=== PATIENT | female | born 1995 | race Two or more races ===

== ENCOUNTER → 2023-08-19 | Outpatient (CLI) | payer MEDICAID ==
[2023-08-19 11:07] LABS: Basophils # (auto) 0 10 ^3/uL (0-0.2); Basophils % (auto) 0.4 % (0.0-2.0); Eosinophils # (auto) 0 10 ^3/uL (0-0.8); Eosinophils % (auto) 0.3 % (0.0-7.0); Hematocrit 34.8 % (36.0-46.0); Lymphocytes # (auto) 1.9 10 ^3/uL (0.4-5.4); Lymphocytes % (auto) 21.8 % (10.0-50.0); Mean Corpuscular Hemoglobin 32.7 pg (28.0-32.0); Mean Corpuscular Hgb Conc. 34.5 g/dL (32.0-36.0); Monocytes # (auto) 0.4 10 ^3/uL (0-1.3); Monocytes % (auto) 4.8 % (0.0-12.0); Neutrophils # (auto) 6.3 10 ^3/uL (1.6-8.6); Neutrophils % (auto) 72.7 % (37.0-80.0); Nucleated Red Blood Cells % 0.1 %; Red Blood Cells 3.66 10^6/uL (4.0-5.20); Red Cell Distribution Width 13.6 % (11.8-14.3); White Blood Cell 8.6 10^3/uL (4.4-10.8)
[2023-08-19 11:48] LABS: Amphetamine Screen, Urine Neg (NEGATIVE)
[2023-08-19 11:50] LABS: Barbiturate Scree,Urine Neg (NEGATIVE); Benzodiazephine Screen, Urine Neg (NEGATIVE); Cocaine Screen, Urine Neg (NEGATIVE); Opiate Scree,Urine Neg (NEGATIVE)
[2023-08-19 11:51] LABS: Cannabinoid Screen, Urine Neg (NEGATIVE); Phencyclidine Screen, Urine Neg (NEGATIVE)
[2023-08-19 11:54] LABS: Thyroid Stimulating Hormone 3.11 uIU/mL (0.55-4.78)
[2023-08-19 11:55] LABS: Alanine Aminotransferase 14 U/L (7-40); Albumin 4.3 g/dL (3.2-4.8); Alkaline Phosphatase 40 U/L (46-116); Anion Gap 6 (5-15); Aspartate Aminotransferase 13 U/L (13-40); BUN/Creatinine Ratio 14.3 (10.0-20.0); Blood Urea Nitrogen 8 mg/dL (9-23); Calcium 9.3 mg/dL (8.5-10.1); Carbon Dioxide 23 mmol/L (20-30); Chloride 108 mmol/L (98-107); Cholesterol 228 mg/dL (< 200); Glucose 80 mg/dL (74-106); LDL Cholesterol 141 mg/dL (< 100); Potassium 3.6 mmol/L (3.5-5.1); Sodium 137 mmol/L (136-145); Triglycerides 132 mg/dL (< 150)
[2023-08-19 11:56] LABS: Bilirubin, Total 0.5 mg/dL (0.2-1.0); HDL Cholesterol 72 mg/dL (40-59); Total Protein 6.7 g/dL (5.7-8.2)
[2023-08-19 12:02] LABS: Beta HCG, Quantitative 20180.7 mIU/mL (1.5-4.2)
[2023-08-20 08:06] LABS: RPR Non Reactive (Non Reactive)
[2023-08-20 23:07] LABS: Chlamydia Trachomatis, NAA Negative (Negative); Neisseria gonorrhoeae, NAA Negative (Negative)
[2023-08-21 02:06] LABS: Varicella Zoster IgG Antibody 623 index (Immune >165)
[2023-08-21 11:07] LABS: QuantiFERON-TB Gold Plus Negative (Negative)
== END | disposition home or self-care (01) ==
LOC: LAB 10:39
PROVIDERS: ATTEND Obstetrics & Gynecology
DX: Z34.00 Encounter for supervision of normal first pregnancy, unspecified trimester (principal); Z31.430 Encounter of female for testing for genetic disease carrier status for procreative management; Z36.0 Encounter for antenatal screening for chromosomal anomalies; N39.0 Urinary tract infection, site not specified; Z3A.00 Weeks of gestation of pregnancy not specified
CPT/HCPCS: 36415; 80053; 80061; 80307; 83036; 84439; 84443; 84702; 85025; 86592; 86703; 86762; 86787; 86850; 86900; 86901; 87086; 87088; 87186; 87340; 87902

== ENCOUNTER → 2023-08-27 | Outpatient (CLI) | payer MEDICAID | END | disposition home or self-care (01) | LOC: LAB 12:25 | PROVIDERS: ATTEND Obstetrics & Gynecology | DX: Z34.80 Encounter for supervision of other normal pregnancy, unspecified trimester (principal); Z3A.00 Weeks of gestation of pregnancy not specified | CPT/HCPCS: 86703 ==

== ENCOUNTER → 2023-09-22 | Outpatient (CLI) | payer MEDICAID ==
[2023-09-22 10:48] LABS: Albumin 4.2 g/dL (3.2-4.8); Alkaline Phosphatase 51 U/L (46-116); Anion Gap 5 (5-15); Aspartate Aminotransferase 13 U/L (13-40); BUN/Creatinine Ratio 10.5 (10.0-20.0); Basophils # (auto) 0 10 ^3/uL (0-0.2); Basophils % (auto) 0.2 % (0.0-2.0); Blood Urea Nitrogen 6 mg/dL (9-23); Calcium 9.1 mg/dL (8.7-10.4); Carbon Dioxide 26 mmol/L (20-30); Chloride 106 mmol/L (98-107); Eosinophils # (auto) 0 10 ^3/uL (0-0.8); Eosinophils % (auto) 0.2 % (0.0-7.0); Glucose 84 mg/dL (74-106); Hematocrit 33.4 % (36.0-46.0); Hemoglobin 11.4 g/dL (12.2-16.2); Lymphocytes # (auto) 1.6 10 ^3/uL (0.4-5.4); Lymphocytes % (auto) 18.9 % (10.0-50.0); Mean Corpuscular Hemoglobin 31.8 pg (28.0-32.0); Mean Corpuscular Hgb Conc. 34.2 g/dL (32.0-36.0); Monocytes # (auto) 0.5 10 ^3/uL (0-1.3); Monocytes % (auto) 5.6 % (0.0-12.0); Neutrophils # (auto) 6.3 10 ^3/uL (1.6-8.6); Neutrophils % (auto) 75.1 % (37.0-80.0); Red Blood Cells 3.59 10^6/uL (4.0-5.20); Sodium 137 mmol/L (136-145); White Blood Cell 8.4 10^3/uL (4.4-10.8)
[2023-09-22 10:49] LABS: Alanine Aminotransferase < 9 U/L (7-40); Bilirubin, Total 0.5 mg/dL (0.2-1.0); Total Protein 6.5 g/dL (5.7-8.2)
[2023-09-23 12:47] LABS: RPR Non Reactive (Non Reactive)
[2023-09-23 13:07] LABS: Chlamydia Trachomatis, NAA Negative (Negative); Neisseria gonorrhoeae, NAA Negative (Negative)
== END | disposition home or self-care (01) ==
LOC: LAB 10:13
PROVIDERS: ATTEND Obstetrics & Gynecology
DX: Z34.00 Encounter for supervision of normal first pregnancy, unspecified trimester (principal)
CPT/HCPCS: 36415; 80053; 82951; 83036; 85025; 86592; 86850; 86900; 86901

== ENCOUNTER 2024-01-02 14:03 | Observation (INO) | payer MEDICAID ==
[~2024-01-02] VITALS: Ht 162.6 cm; Wt 74.8 kg
--- NOTE | 2024-01-02 14:49 | DVH ---
BIOPHYSICAL PROFILE HISTORY: post dates TECHNIQUE: Multiple transabdominal real-time grayscale sonographic images through the gravid uterus of the fetus with duplex Doppler color flow and M-mode spectral analysis FINDINGS: BIOPHYSICAL PROFILE: breathing score: 2 movement score: 2 tone score: 2 Quantitative TROY score: 2 (TROY: 16.4 Cm.) Total score: 8/8 Single live fetus in cephalic presentation. heart rate 131 beats per minute. Right lateral placenta without previa or abruption IMPRESSION: 1. Biophysical profile score: 8/8 HS:Y
--- NOTE | 2024-01-03 10:04 | DVHDS2 ---
Obstetrics Discharge Summary Obstetrics Discharge Summary Date of Admission: Jan 02, 2024 Date of Discharge: Jan 02, 2024 Reason For Admission: Observational/Evaluation ( Status) Procedures: NST, Ultrasound Discharge Diagnosis: Others (Post dates reassuring heart tones BPP/TROY) Discharge Information: Activity (Unrestricted), Diet (Routine), Medications (None), Instructions (Kick count precautions SROM precautions), Discarge date ANDREW PARTIDA DO Jan 03, 2024 10:04
== END 2024-01-02 15:34 | disposition home or self-care (01) ==
LOC: LDRP 14:03
PROVIDERS: ADMIT Obstetrics & Gynecology; ATTEND Obstetrics & Gynecology
DX: O48.0 Post-term pregnancy (principal); Z3A.40 40 weeks gestation of pregnancy; Z79.899 Other long term (current) drug therapy
CPT/HCPCS: 59025; 76818; 81002; 94760; G0378

== ENCOUNTER 2024-01-04 19:32 | Observation (INO) | payer MEDICAID ==
--- NOTE | 2024-01-04 20:30 | DVH ---
BIOPHYSICAL PROFILE HISTORY: NST/ BPP for Post Dates TECHNIQUE: Multiple transabdominal real-time grayscale sonographic images through the gravid uterus of the fetus with duplex Doppler color flow and M-mode spectral analysis FINDINGS: BIOPHYSICAL PROFILE: breathing score: 2 movement score: 2 tone score: 2 Quantitative TROY score: 2 (TROY: 14.6 Cm.) Total score: 8/8 Single live fetus in cephalic presentation. heart rate 142 beats per minute. Anterior placenta without previa or abruption IMPRESSION: 1. Biophysical profile score: 8/8 HS:Y
[2024-01-04] MEDS ORDERED: PREN-96 PO (21:05)
--- NOTE | 2024-01-05 05:25 | DVHDS2 ---
Obstetrics Discharge Summary Obstetrics Discharge Summary Date of Admission: Jan 04, 2024 Date of Discharge: Jan 04, 2024 Reason For Admission: Observational/Evaluation Procedures: None, NST, Ultrasound Discharge Diagnosis: Others (Patient postop day 2 for evaluation status reassuring maternal status reassuring) Discharge Information: Activity (Unrestricted), Diet (Routine), Medications (None), Instructions (Kick counts labor precautions SROM precautions), Discharge to, Discarge date (January 04, 2024) ANDREW PARTIDA DO Jan 05, 2024 05:25
== END 2024-01-04 21:12 | disposition home or self-care (01) ==
LOC: LDRP 19:32
PROVIDERS: ADMIT Obstetrics & Gynecology; ATTEND Obstetrics & Gynecology
DX: O48.0 Post-term pregnancy (principal); Z3A.40 40 weeks gestation of pregnancy; Z79.899 Other long term (current) drug therapy
CPT/HCPCS: 59025; 76818; 81002; 94760; G0378

== ENCOUNTER 2024-01-05 07:20 | Inpatient (IN) | payer MEDICAID ==
[~2024-01-05] VITALS: Ht 162.6 cm; Wt 74.8 kg
[~2024-01-05 07:20] MED LIST: PREN-96 PO
[2024-01-05] MEDS ORDERED: BUTORPHANOL TARTRATE 2 MG/1 ML VIAL IV PRN ×2 (07:30)
[2024-01-05] MEDS ORDERED: LIDOCAINE 2%HCL (LOCAL ANESTH.) INJ 20ML MDV IJ PRN (07:30)
--- NOTE | 2024-01-05 08:00 | DVHHP2 ---
OB CC & HPI Date Date of Admission: Jan 05, 2024 Patient Identification: : 1 Para: 0 EDC: Dec 31, 2023 EGA: 40.5wks Chief Complaints: Reason for admission: induction of labor Indication for induction: post dates History of Present Complaints 28yo IUP@40.5wks presents for scheduled IOL postdates. Denies UCs/LOF/VB/DEVI/vision changes/RUQ pain. Endorses +FM, +BH. PNC: Routine PNC at [facility] OB with Dr. Frances, adequate visits, PNC uncomplicated. GTT wnl, dating based on LMP c/w 19wk sono, GBS negative. Past Medical History Cardiac: No pertinent Hx Pulmonary: No pertinent Hx Central Nervous System: No pertinent Hx GI: No pertinent Hx Hemotology/Oncology: No pertinent Hx Hepatobiliary: No pertinent Hx Psychiatric: No pertinent Hx Musculoskeletal: No pertinent Hx Rheumotologic: No pertinent Hx Infectious Disease: No peritnent Hx ENT: No pertinent Hx Renal/: No pertinent Hx Endocrine: No pertinent Hx Dermatology: No pertinent Hx Past Surgical History: No pertinent Hx OB History OB History Care: Good Care Ultrasounds: Normal mid trimester US Obstetrical Complications: None Medical Complications: None Allergies: Coded Allergies: NO KNOWN ALLERGIES (Unverified , 01/02/24) Home Meds Reported Medications Vit W/ Ferrous Fumara ( One Daily) Daily Tab, 1 TAB PO DAILY, #30 TAB 11 Refills 01/04/24 Current Medications Current Medications Medications (Trade) Dose Ordered Sig/Natali Route PRN Reason Start Time Stop Time Status Last Admin Lactated Ringer's 1,000 ml @ 125 mls/hr Q8H IV 01/05/24 07:30 UNV Witch Radha (Tucks) 1 pad PRN PRN TOP PERINEAL AREA DISCOMFORT 01/05/24 07:30 UNV Sodium Lauryl Sulfate (Phisoderm) 240 ml PRN PRN TOP PERINEAL AREA DISCOMFORT 01/05/24 07:30 UNV Benzocaine (Dermoplast) 1 applic PRN PRN TOP PERINEAL AREA DISCOMFORT 01/05/24 07:30 UNV Butorphanol Tartrate (Stadol Injection) 1 mg Q4HPRN PRN IV MODERATE PAIN (4-6 PAIN SCALE) 01/05/24 07:30 UNV Butorphanol Tartrate (Stadol Injection) 2 mg Q4HPRN PRN IV SEVERE PAIN (7-10 PAIN SCALE) 01/05/24 07:30 UNV Misoprostol (Cytotec) 50 mcg Q4HPRN PRN PO CERVICAL RIPENING 01/05/24 07:30 UNV Lidocaine HCl (Xylocaine) 20 ml ONCE PRN IJ PERINEAL AREA DISCOMFORT 01/05/24 07:30 UNV Family & Social History Family/Social History Past Family/Social History: denies Blood Type: A+ Rubella: immune RPR/VDRL: Negative GBS Status: Negative HBsAG: Negative Review of Systems Constitutional: No symptom reported Ears, Nose, & Throat: No symptom reported Eyes: No symptom reported Pulmonary/Respiratory: No symptom reported Cardiovascular: No symptom reported Gastrointestinal: No symptom reported Genitourinary: No symptom reported Musculoskeletal: No symptom reported Skin: No symptom reported Psychiatric: No symptom reported Endocrine: No symptom reported Hemotologic/Lymphatic: No symptom reported OB Admission Exam Physical Exam Vitals: VSS, see chart HEENT: TMs Normal, Fontanelles Normal, Nasal Mucosa Normal, Eyes non-injected, Oropharynx Normal, PERRLA, Moist Membranes, EOMI Heart: Rhythm Normal Lungs: Clear Abdomen: Gravid Extremities: Normal Reflexes: Normal Pelvic Exam: O: VSS EFW in office last week: 7 lbs 2 oz, vertex Nuchal Cord x1 noted on sono SVE - 02/28/3, vertex, intact See lab results Membranes: Intact Heart Rate: 130's Accelerations: Accelerations Present Decelerations: No Decelerations Half-Way Variability: Average (6-25) Frequency of Contractions: irregular Intensity: Mild OB Plan Plan Admitting Diagnosis: post dates induction Plan: Induction Induction Methd: Misoprostol protocol Other Plan: A: 28yo IUP@40.5wks Induction of Labor, post dates Category I EFM Intact Membranes GBS negative P: Admit to L&D Informed consent obtained Discussed risks, benefits, alternatives of IOL for post dates with pt. Pt consents to IOL with PO cytotec. monitoring per order Routine labs ordered Pain mgmt PRN Frequent position changes in and out of bed encouraged Limit SVE unless necessary Intrauterine resuscitation PRN Anticipate CNM will consult with [facility] Jan 05, 2024 08:00
[2024-01-05 08:04] LABS: Basophils # (auto) 0 10 ^3/uL (0-0.2); Eosinophils # (auto) 0 10 ^3/uL (0-0.8); Lymphocytes # (auto) 2.1 10 ^3/uL (0.4-5.4); Monocytes # (auto) 0.6 10 ^3/uL (0-1.3); Neutrophils # (auto) 5.3 10 ^3/uL (1.6-8.6)
[2024-01-05 08:08] LABS: Basophils % (auto) 0.3 % (0.0-2.0); Eosinophils % (auto) 0.3 % (0.0-7.0); Hematocrit 30.8 % (36.0-46.0); Hemoglobin 10.2 g/dL (12.2-16.2); Lymphocytes % (auto) 26.4 % (10.0-50.0); Mean Corpuscular Hemoglobin 26.5 pg (28.0-32.0); Mean Corpuscular Volume 80.3 fL (80.0-100.0); Monocytes % (auto) 7.2 % (0.0-12.0); Neutrophils % (auto) 65.8 % (37.0-80.0); Nucleated Red Blood Cells % 0.2 %; Platelet Count (auto) 201 10^3/uL (140-450); Red Blood Cells 3.84 10^6/uL (4.0-5.20); Red Cell Distribution Width 16.1 % (11.8-14.3)
[2024-01-05 08:20] LABS: Alanine Aminotransferase 13 U/L (7-40); Albumin 3.8 g/dL (3.2-4.8); Alkaline Phosphatase 185 U/L (46-116); Anion Gap 8 (5-15); Aspartate Aminotransferase 17 U/L (13-40); BUN/Creatinine Ratio 10.9 (10.0-20.0); Bilirubin, Total 0.5 mg/dL (0.2-1.0); Blood Urea Nitrogen 7 mg/dL (9-23); Calcium 9.2 mg/dL (8.7-10.4); Carbon Dioxide 22 mmol/L (20-31); Chloride 107 mmol/L (98-107); Glucose 80 mg/dL (74-106); Potassium 4.3 mmol/L (3.5-5.1); Sodium 137 mmol/L (136-145); Total Protein 6.3 g/dL (5.7-8.2)
[2024-01-05 08:28] LABS: Urine Bacteria FEW /hpf (None Seen); Urine Blood Negative /uL (Negative); Urine Clarity Turbid (Clear); Urine Color Light-Yellow (Yellow); Urine Mucus FEW (None Seen); Urine Protein, UAD TRACE (Negative); Urine Specific Gravity 1.016 (1.001-1.035); Urine Urobilinogen Normal (Negative); Urine WBC 8 /hpf (0 - 5); Urine pH 6.5 (5.0-9.0)
[2024-01-05 08:30] LABS: INR 0.91 (0.9-1.15); Partial Thromboplastin Time 27.6 SEC (24.5-34.5); Prothrombin Time 9.7 sec (9.3-11.8)
[2024-01-05 08:39] LABS: Amphetamine Screen, Urine Neg (NEGATIVE)
[2024-01-05 08:40] LABS: Barbiturate Scree,Urine Neg (NEGATIVE); Benzodiazephine Screen, Urine Neg (NEGATIVE); Cocaine Screen, Urine Neg (NEGATIVE); Opiate Scree,Urine Neg (NEGATIVE); Phencyclidine Screen, Urine Neg (NEGATIVE)
[2024-01-05 08:41] LABS: Cannabinoid Screen, Urine Neg (NEGATIVE)
[2024-01-05] MEDS: WITCH HAZEL-GLYCERIN PAD TOP PRN (08:57)
[2024-01-05] MEDS: DERMOPLAST 60ML BOTTLE TOP PRN (08:57)
[2024-01-05] MEDS: miSOPROStol 50 MCG per PRE-CUT 1/2 TAB PO PRN (08:57)
[2024-01-05] MEDS: PHISODERM TOP SOLN 240ML BTL TOP PRN (08:57)
[2024-01-05] MEDS: LACTATED RINGER'S 1,000 ML IV SCH (08:57)
--- NOTE | 2024-01-05 13:50 | DVHPN2 ---
[facility] Labor Progress Note Date and Time Seen Date Seen: Jan 05, 2024 Time Seen: 13:11 Subjective Patient reports: No new complaints Subjective Comment Pt consents to jay balloon attempt after discussion. Objective Vital Signs VSS, see chart Laboratory Tests Test 01/05/24 07:20 01/05/24 07:41 Range/Units Urine Color Light-yellow Yellow Urine Clarity Turbid H Clear Urine pH 6.5 5.0-9.0 Urine Specific [place] 1.016 1.001-1.035 Urine Protein Trace H Negative Urine Ketones Negative Negative Urine Blood Negative Negative /uL Urine Nitrite Negative Negative Urine Bilirubin Negative Negative Urine Urobilinogen Normal Negative mg/dL Urine Leukocyte Esterase 3+ Negative /uL Urine RBC 2 0 - 4 /hpf Urine WBC 8 0 - 5 /hpf Urine Squamous Epithelial Cells Few <5 /hpf Urine Bacteria Few H None Seen /hpf Urine Mucus Few None Seen Urine Glucose Normal Normal mg/dL Urine Opiates Screen Neg NEGATIVE Urine Fentanyl Screen Neg NEGATIVE Urine Barbiturates Screen Neg NEGATIVE Urine Phencyclidine Screen Neg NEGATIVE Urine Amphetamines Screen Neg NEGATIVE Urine Benzodiazepines Screen Neg NEGATIVE Urine Cocaine Screen Neg NEGATIVE Urine Cannabinoids Screen Neg NEGATIVE White Blood Count 8.0 4.4-10.8 10^3/uL Red Blood Count 3.84 L 4.0-5.20 10^6/uL Hemoglobin 10.2 L 12.2-16.2 g/dL Hematocrit 30.8 L 36.0-46.0 % Mean Corpuscular Volume 80.3 80.0-100.0 fL Mean Corpuscular Hemoglobin 26.5 L 28.0-32.0 pg Mean Corpuscular Hemoglobin Concent 33.0 32.0-36.0 g/dL Red Cell Distribution Width 16.1 H 11.8-14.3 % Platelet Count 201 140-450 10^3/uL Mean Platelet Volume 9.7 6.9-10.8 fL Neutrophils (%) (Auto) 65.8 37.0-80.0 % Lymphocytes (%) (Auto) 26.4 10.0-50.0 % Monocytes (%) (Auto) 7.2 0.0-12.0 % Eosinophils (%) (Auto) 0.3 0.0-7.0 % Basophils (%) (Auto) 0.3 0.0-2.0 % Neutrophils # (Auto) 5.3 1.6-8.6 10 ^3/uL Lymphocytes # (Auto) 2.1 0.4-5.4 10 ^3/uL Monocytes # (Auto) 0.6 0-1.3 10 ^3/uL Eosinophils # (Auto) 0 0-0.8 10 ^3/uL Basophils # (Auto) 0 0-0.2 10 ^3/uL Nucleated Red Blood Cells 0.2 % Prothrombin Time 9.7 9.3-11.8 sec Prothrombin Time INR 0.91 0.9-1.15 Activated Partial Thromboplast Time 27.6 24.5-34.5 SEC Sodium Level 137 136-145 mmol/L Potassium Level 4.3 3.5-5.1 mmol/L Chloride Level 107 98-107 mmol/L Carbon Dioxide Level 22 20-31 mmol/L Anion Gap 8 5-15 Blood Urea Nitrogen 7 L 9-23 mg/dL Creatinine 0.64 0.550-1.02 mg/dL Glomerular Filtration Rate Calc 124 >90 mL/min BUN/Creatinine Ratio 10.9 10.0-20.0 Serum Glucose 80 74-106 mg/dL Calcium Level 9.2 8.7-10.4 mg/dL Total Bilirubin 0.5 0.2-1.0 mg/dL Aspartate Amino Transferase (AST) 17 13-40 U/L Alanine Aminotransferase (ALT) 13 7-40 U/L Alkaline Phosphatase 185 H 46-116 U/L Total Protein 6.3 5.7-8.2 g/dL Albumin 3.8 3.2-4.8 g/dL Rapid Plasma Reagin Pending Hepatitis B Surface Antigen Negative Negative Hepatitis C Antibody Negative Negative HIV (1&2) Antibody Negative Negative Rubella IgG Antibody Pending SARS-CoV-2 Antigen (Rapid) Pending Monitoring Method Monitoring Method: External Heart Rate Heart Rate Baseline: 140 Heart Rate Variability: Moderate Presence of FHR Accelerations: Yes Presence of FHR Decelerations: Yes Heart Rate Type of Decel: Late Decelerations (x2) Are all 5 Components of the FH: Yes Contractions Contractions Frequency: Other (q2-4 min) Duration of Contraction: 80 Contractions Intensity: Moderate Contractions Resting Tone: Relaxed Membranes Membranes: Intact Vaginal Exam Vag Exam Deferred: No (attempted to place jay balloon, unsuccessful) Vaginal Exam Dilation: 3 Vaginal Exam Effacement: 60 Vaginal Exam Station: -2 Vaginal Exam Presentation: VTX Vaginal Exam Show: Small Medications Medications - Pitocin: No Medications - Pain Medications: PRN Medication - Epidural: No Medication - Other 1 dose of PO cytotec Lab Results Lab Results Current Medications Medications (Trade) Dose Ordered Sig/Natali Start Time Stop Time Status Last Admin Dose Admin Lactated Ringer's 1,000 ml @ 125 mls/hr Q8H 01/05/24 07:30 01/05/24 14:05 125 MLS/HR Rafael Garcia (Tucks) 1 pad PRN PRN 01/05/24 07:30 01/05/24 08:57 1 PAD Sodium Lauryl Sulfate (Phisoderm) 240 ml PRN PRN 01/05/24 07:30 01/05/24 08:57 240 ML Benzocaine (Dermoplast) 1 applic PRN PRN 01/05/24 07:30 01/05/24 08:57 1 APPLIC Butorphanol Tartrate (Stadol Injection) 1 mg Q4HPRN PRN 01/05/24 07:30 Butorphanol Tartrate (Stadol Injection) 2 mg Q4HPRN PRN 01/05/24 07:30 Misoprostol (Cytotec) 50 mcg Q4HPRN PRN 01/05/24 07:30 01/05/24 08:57 50 MCG Lidocaine HCl (Xylocaine) 20 ml ONCE PRN 01/05/24 07:30 Oxytocin 1,000 ml @ 6 ml/hr Q24H 01/05/24 14:30 Terbutaline Sulfate (Brethine Inj) 0.25 mg ONCE PRN 01/05/24 14:30 Oxytocin 500 ml @ 999 mls/hr Q31M ONCE 01/05/24 14:30 01/05/24 15:00 Oxytocin 500 ml @ 125 mls/hr Q4H ONCE 01/05/24 15:00 01/05/24 18:59 Laboratory Tests Test 01/05/24 07:41 01/05/24 07:20 Range/Units White Blood Count 8.0 4.4-10.8 10^3/uL Red Blood Count 3.84 L 4.0-5.20 10^6/uL Hemoglobin 10.2 L 12.2-16.2 g/dL Hematocrit 30.8 L 36.0-46.0 % Mean Corpuscular Volume 80.3 80.0-100.0 fL Mean Corpuscular Hemoglobin 26.5 L 28.0-32.0 pg Mean Corpuscular Hemoglobin Concent 33.0 32.0-36.0 g/dL Red Cell Distribution Width 16.1 H 11.8-14.3 % Platelet Count 201 140-450 10^3/uL Mean Platelet Volume 9.7 6.9-10.8 fL Neutrophils (%) (Auto) 65.8 37.0-80.0 % Lymphocytes (%) (Auto) 26.4 10.0-50.0 % Monocytes (%) (Auto) 7.2 0.0-12.0 % Eosinophils (%) (Auto) 0.3 0.0-7.0 % Basophils (%) (Auto) 0.3 0.0-2.0 % Neutrophils # (Auto) 5.3 1.6-8.6 10 ^3/uL Lymphocytes # (Auto) 2.1 0.4-5.4 10 ^3/uL Monocytes # (Auto) 0.6 0-1.3 10 ^3/uL Eosinophils # (Auto) 0 0-0.8 10 ^3/uL Basophils # (Auto) 0 0-0.2 10 ^3/uL Nucleated Red Blood Cells 0.2 % Prothrombin Time 9.7 9.3-11.8 sec Prothrombin Time INR 0.91 0.9-1.15 Activated Partial Thromboplast Time 27.6 24.5-34.5 SEC Sodium Level 137 136-145 mmol/L Potassium Level 4.3 3.5-5.1 mmol/L Chloride Level 107 98-107 mmol/L Carbon Dioxide Level 22 20-31 mmol/L Anion Gap 8 5-15 Blood Urea Nitrogen 7 L 9-23 mg/dL Creatinine 0.64 0.550-1.02 mg/dL Glomerular Filtration Rate Calc 124 >90 mL/min BUN/Creatinine Ratio 10.9 10.0-20.0 Serum Glucose 80 74-106 mg/dL Calcium Level 9.2 8.7-10.4 mg/dL Total Bilirubin 0.5 0.2-1.0 mg/dL Aspartate Amino Transferase (AST) 17 13-40 U/L Alanine Aminotransferase (ALT) 13 7-40 U/L Alkaline Phosphatase 185 H 46-116 U/L Total Protein 6.3 5.7-8.2 g/dL Albumin 3.8 3.2-4.8 g/dL Rapid Plasma Reagin Pending Hepatitis B Surface Antigen Negative Negative Hepatitis C Antibody Negative Negative HIV (1&2) Antibody Negative Negative Rubella IgG Antibody Pending SARS-CoV-2 Antigen (Rapid) Pending Urine Color Light-yellow Yellow Urine Clarity Turbid H Clear Urine pH 6.5 5.0-9.0 Urine Specific [place] 1.016 1.001-1.035 Urine Protein Trace H Negative Urine Ketones Negative Negative Urine Blood Negative Negative /uL Urine Nitrite Negative Negative Urine Bilirubin Negative Negative Urine Urobilinogen Normal Negative mg/dL Urine Leukocyte Esterase 3+ Negative /uL Urine RBC 2 0 - 4 /hpf Urine WBC 8 0 - 5 /hpf Urine Squamous Epithelial Cells Few <5 /hpf Urine Bacteria Few H None Seen /hpf Urine Mucus Few None Seen Urine Glucose Normal Normal mg/dL Urine Opiates Screen Neg NEGATIVE Urine Fentanyl Screen Neg NEGATIVE Urine Barbiturates Screen Neg NEGATIVE Urine Phencyclidine Screen Neg NEGATIVE Urine Amphetamines Screen Neg NEGATIVE Urine Benzodiazepines Screen Neg NEGATIVE Urine Cocaine Screen Neg NEGATIVE Urine Cannabinoids Screen Neg NEGATIVE Assessment Assessment A: 28yo IUP@40.5wks Induction of Labor, post dates Category I EFM Intact Membranes GBS negative Plan Plan P: Start IV pitocin when Category I EFM, pt agrees with POC. monitoring per order Pain mgmt PRN Frequent position changes in and out of bed encouraged Limit SVE unless necessary Intrauterine resuscitation PRN Anticipate CNM will consult with Dr. Daugherty PRN Plan discussed with: Patient KERRI BARBER CNM Jan 05, 2024 13:50
[2024-01-05] MEDS ORDERED: TERBUTALINE SULFATE 1 MG/ML 1ML VIAL SC PRN (14:30)
[2024-01-05] MEDS: LACT. RINGERS/OXYTOCIN 20UNITS 1,000 ML IV SCH (14:48)
[2024-01-05] MEDS ORDERED: NALOXONE HCL 0.4 MG/ML VIAL IV ONE (17:15)
[2024-01-05] MEDS ORDERED: ePHEDrine SULFATE 50 MG/ML AMP IV ONE (17:15)
[2024-01-05] MEDS ORDERED: BUPIVACAINE 0.25% INJ 50ML VIAL ONE (19:11)
[2024-01-05] MEDS: ROPIVACAINE HCL 200 ML ONE (21:08)
[2024-01-05] MEDS: fentaNYL CITRATE 100 MCG/2 ML VL IV ONE (21:16)
--- NOTE | 2024-01-05 21:42 | DVHPN2 ---
[facility] Labor Progress Note Date and Time Seen Date Seen: Jan 05, 2024 Time Seen: 21:10 Subjective Patient reports: No new complaints Subjective Comment Pt is comfortable with epidural. Objective Vital Signs VSS, see chart Monitoring Method Monitoring Method: External Heart Rate Heart Rate Baseline: 135 Heart Rate Variability: Moderate Presence of FHR Accelerations: Yes Presence of FHR Decelerations: No Are all 5 Components of the FH: Yes Contractions Contractions Frequency: Other (q1.5-3 min) Duration of Contraction: 80 Contractions Intensity: Moderate Contractions Resting Tone: Relaxed Membranes Membranes: Intact Vaginal Exam Vag Exam Deferred: Yes (SVE by RN: 780/-3) Vaginal Exam Presentation: VTX Medications Medications - Pitocin: Yes (3mu) Medication - Epidural: Yes Medication - Other 1 dose of PO cytotec received Lab Results Lab Results Current Medications Medications (Trade) Dose Ordered Sig/Natali Start Time Stop Time Status Last Admin Dose Admin Lactated Ringer's 1,000 ml @ 125 mls/hr Q8H 01/05/24 07:30 01/05/24 14:05 125 MLS/HR Witch Radha (Tucks) 1 pad PRN PRN 01/05/24 07:30 01/05/24 08:57 1 PAD Sodium Lauryl Sulfate (Phisoderm) 240 ml PRN PRN 01/05/24 07:30 01/05/24 08:57 240 ML Benzocaine (Dermoplast) 1 applic PRN PRN 01/05/24 07:30 01/05/24 08:57 1 APPLIC Butorphanol Tartrate (Stadol Injection) 1 mg Q4HPRN PRN 01/05/24 07:30 Butorphanol Tartrate (Stadol Injection) 2 mg Q4HPRN PRN 01/05/24 07:30 Misoprostol (Cytotec) 50 mcg Q4HPRN PRN 01/05/24 07:30 01/05/24 08:57 50 MCG Lidocaine HCl (Xylocaine) 20 ml ONCE PRN 01/05/24 07:30 Oxytocin 1,000 ml @ 6 ml/hr Q24H 01/05/24 14:30 01/05/24 14:48 6 ML/HR Terbutaline Sulfate (Brethine Inj) 0.25 mg ONCE PRN 01/05/24 14:30 Oxytocin 500 ml @ 999 mls/hr Q31M ONCE 01/05/24 14:30 01/05/24 15:00 DC Oxytocin 500 ml @ 125 mls/hr Q4H ONCE 01/05/24 15:00 01/05/24 18:59 DC Naloxone HCl (Narcan) 0.2 mg PRN ONCE 01/05/24 17:15 01/05/24 17:17 DC Ephedrine Sulfate (ePHEDrine SULFATE) 10 mg PRN ONCE 01/05/24 17:15 01/05/24 17:17 DC Fentanyl Citrate 100 mcg ONCE ONCE 01/05/24 17:15 01/05/24 17:17 DC 01/05/24 21:16 100 MCG Laboratory Tests Test 01/05/24 07:41 01/05/24 07:20 Range/Units White Blood Count 8.0 4.4-10.8 10^3/uL Red Blood Count 3.84 L 4.0-5.20 10^6/uL Hemoglobin 10.2 L 12.2-16.2 g/dL Hematocrit 30.8 L 36.0-46.0 % Mean Corpuscular Volume 80.3 80.0-100.0 fL Mean Corpuscular Hemoglobin 26.5 L 28.0-32.0 pg Mean Corpuscular Hemoglobin Concent 33.0 32.0-36.0 g/dL Red Cell Distribution Width 16.1 H 11.8-14.3 % Platelet Count 201 140-450 10^3/uL Mean Platelet Volume 9.7 6.9-10.8 fL Neutrophils (%) (Auto) 65.8 37.0-80.0 % Lymphocytes (%) (Auto) 26.4 10.0-50.0 % Monocytes (%) (Auto) 7.2 0.0-12.0 % Eosinophils (%) (Auto) 0.3 0.0-7.0 % Basophils (%) (Auto) 0.3 0.0-2.0 % Neutrophils # (Auto) 5.3 1.6-8.6 10 ^3/uL Lymphocytes # (Auto) 2.1 0.4-5.4 10 ^3/uL Monocytes # (Auto) 0.6 0-1.3 10 ^3/uL Eosinophils # (Auto) 0 0-0.8 10 ^3/uL Basophils # (Auto) 0 0-0.2 10 ^3/uL Nucleated Red Blood Cells 0.2 % Prothrombin Time 9.7 9.3-11.8 sec Prothrombin Time INR 0.91 0.9-1.15 Activated Partial Thromboplast Time 27.6 24.5-34.5 SEC Sodium Level 137 136-145 mmol/L Potassium Level 4.3 3.5-5.1 mmol/L Chloride Level 107 98-107 mmol/L Carbon Dioxide Level 22 20-31 mmol/L Anion Gap 8 5-15 Blood Urea Nitrogen 7 L 9-23 mg/dL Creatinine 0.64 0.550-1.02 mg/dL Glomerular Filtration Rate Calc 124 >90 mL/min BUN/Creatinine Ratio 10.9 10.0-20.0 Serum Glucose 80 74-106 mg/dL Calcium Level 9.2 8.7-10.4 mg/dL Total Bilirubin 0.5 0.2-1.0 mg/dL Aspartate Amino Transferase (AST) 17 13-40 U/L Alanine Aminotransferase (ALT) 13 7-40 U/L Alkaline Phosphatase 185 H 46-116 U/L Total Protein 6.3 5.7-8.2 g/dL Albumin 3.8 3.2-4.8 g/dL Rapid Plasma Reagin Pending Hepatitis B Surface Antigen Negative Negative Hepatitis C Antibody Negative Negative HIV (1&2) Antibody Negative Negative Rubella IgG Antibody Pending SARS-CoV-2 Antigen (Rapid) Pending Urine Color Light-yellow Yellow Urine Clarity Turbid H Clear Urine pH 6.5 5.0-9.0 Urine Specific [place] 1.016 1.001-1.035 Urine Protein Trace H Negative Urine Ketones Negative Negative Urine Blood Negative Negative /uL Urine Nitrite Negative Negative Urine Bilirubin Negative Negative Urine Urobilinogen Normal Negative mg/dL Urine Leukocyte Esterase 3+ Negative /uL Urine RBC 2 0 - 4 /hpf Urine WBC 8 0 - 5 /hpf Urine Squamous Epithelial Cells Few <5 /hpf Urine Bacteria Few H None Seen /hpf Urine Mucus Few None Seen Urine Glucose Normal Normal mg/dL Urine Opiates Screen Neg NEGATIVE Urine Fentanyl Screen Neg NEGATIVE Urine Barbiturates Screen Neg NEGATIVE Urine Phencyclidine Screen Neg NEGATIVE Urine Amphetamines Screen Neg NEGATIVE Urine Benzodiazepines Screen Neg NEGATIVE Urine Cocaine Screen Neg NEGATIVE Urine Cannabinoids Screen Neg NEGATIVE Assessment Assessment A: 28yo IUP@40.5wks Induction of Labor, post dates Category I EFM Intact Membranes GBS negative Plan Plan P: Continue IV pitocin titration per order monitoring per order Epidural in place Frequent position changes in bed with peanut ball encouraged Limit SVE unless necessary Intrauterine resuscitation PRN Anticipate CNM will consult with Dr. Daugherty PRN Plan discussed with: Patient KERRI BARBER TOMAS Jan 05, 2024 21:42
[2024-01-05] MEDS ORDERED: MINERAL OIL TOPICAL 10ml TOP ONE (23:20)
[2024-01-06] MEDS ORDERED: GENTAMICIN PER PHARMACY 0 ML IV SCH (01:15)
[2024-01-06] MEDS: METHYLERGONOVINE MALEATE 0.2 MG/ML AMP IM ONE (01:16)
[2024-01-06] MEDS ORDERED: DEXTROSE IV ONE ×2 (01:30→03:15)
[2024-01-06] MEDS ORDERED: GENTAMICIN SULFATE IV ONE ×2 (01:30→03:15)
[2024-01-06 02:01] LABS: Basophils # (auto) 0 10 ^3/uL (0-0.2); Basophils % (auto) 0.2 % (0.0-2.0); Eosinophils # (auto) 0 10 ^3/uL (0-0.8); Hematocrit 25.3 % (36.0-46.0); Hemoglobin 8.2 g/dL (12.2-16.2); Lymphocytes # (auto) 0.7 10 ^3/uL (0.4-5.4); Lymphocytes % (auto) 5.2 % (10.0-50.0); Mean Corpuscular Hemoglobin 25.7 pg (28.0-32.0); Mean Corpuscular Hgb Conc. 32.4 g/dL (32.0-36.0); Mean Corpuscular Volume 79.3 fL (80.0-100.0); Monocytes # (auto) 0.7 10 ^3/uL (0-1.3); Monocytes % (auto) 5.1 % (0.0-12.0); Neutrophils # (auto) 12.7 10 ^3/uL (1.6-8.6); Neutrophils % (auto) 89.5 % (37.0-80.0); Nucleated Red Blood Cells % 0.2 %; Platelet Count (auto) 165 10^3/uL (140-450); Red Blood Cells 3.19 10^6/uL (4.0-5.20); Red Cell Distribution Width 16.5 % (11.8-14.3); White Blood Cell 14.2 10^3/uL (4.4-10.8)
[2024-01-06 02:21] LABS: INR 0.97 (0.9-1.15); Partial Thromboplastin Time 27.6 SEC (24.5-34.5); Prothrombin Time 10.3 sec (9.3-11.8)
[2024-01-06] MEDS: LACT. RINGERS/OXYTOCIN 20UNITS 500 ML IV ONE ×2 (02:30→02:31)
[2024-01-06] MEDS: ACETAMINOPHEN 325 MG TAB PO ONE (02:33)
--- NOTE | 2024-01-06 03:15 | LDN2 ---
Labor and Delivery Note Date 01/06/24 Age 28 1 Para 1 now AB 0 EDC 12/31/23 EGA 40.6wks Diagnosis IOL for post dates then , PPH, chorioamnionitis Vaginal Delivery: VTX Vacuum Assisted: No Placenta: Spontaneous ( ) Sex: Male Weight 6lbs 10oz Apgars 8/9 Anesthesia epidural Episiotomy: No Extension: No Lacerations: Yes (2nd degree perineal and right/left labial) Repaired with 3-0 vicryl EBL QBL 1300ml Complications PPH: bleeding from lacerations, TXA 1g IVPB given twice, IM methergine and IV pitocin bolus given. Pt feeling dizzy, smelling alcohol pad and feels better. VSS. IV bolus 500ml given. STAT CBC and coags ordered. Iron IVPB daily ordered for tmrw. Chorioamnionitis in recovery period with maternal temp of 102.3F, IV ampicillin/gentamicin and PO Tylenol ordered Conditions stable Strip Presser Dr. Baird Delivery Summary At 0051 this 28yo now delivered a viable Male infant by w/ APGARS 8/9. WALLY presentation. placed skin to skin on pts chest. Cord clamped and cut after pulsation ceased. Cord blood not sent, maternal blood type A+. Intact 3- vessel cord placenta delivered spontaneously, Mariely. Pitocin IV bolus started. Placenta sent to pathology. Patient had epidural anesthesia. Cervix/vagina inspected (intact), second degree perineal and right/left labial lacerations present which were repaired with 3-0 vicryl suture. See PPH note above. Rectal mucosa and sphincter intact. Rectal exam performed, WNL, not involved. Fundus at U, firm, midline, and light lochia. QBL 1,300ml. VSS. Pt does not feel dizzy now. Count correct x2. Patient to care and baby to couplet care, both stable. KERRI BARBER CNM Jan 06, 2024 03:15
[2024-01-06] MEDS: AMPICILLIN SOD 1 GM VL ONE (03:29)
[2024-01-06] MEDS ORDERED: ONDANSETRON HCL 4 MG/2 ML VIAL IV PRN (03:30)
[2024-01-06] MEDS: AMPICILLIN SOD 2GM INJ 2 GM in SODIUM CHL 0.9% 100 ML IV SCH (03:34)
[2024-01-06] MEDS: ONDANSETRON HCL 4 MG/2 ML VIAL ONE (03:34)
[2024-01-06 03:38] VITALS: BP 109/69; PULSE 97; RESP 18; TEMP 99.4; O2SAT 98
[2024-01-06 07:00] VITALS: BP 111/61; PULSE 81; RESP 14; TEMP 98.9; O2SAT 96
[2024-01-06 07:06] LABS: Rubella Antibodies, IgG <0.90 index (Immune >0.99)
[2024-01-06] MEDS: IBUPROFEN 600 MG TAB PO PRN (07:32)
[2024-01-06 08:06] LABS: RPR Non Reactive (Non Reactive)
[2024-01-06] MEDS: GENTAMICIN SULFATE 100 MG in D5W 5% 100 ML IV ONE (08:54)
[2024-01-06] MEDS: IRON SUCROSE COMPLEX 110 ML IV SCH (10:00)
[2024-01-06 11:00] VITALS: BP 102/60; PULSE 88; RESP 14; TEMP 98.3; O2SAT 97
[2024-01-06 12:44] LABS: Basophils # (auto) 0 10 ^3/uL (0-0.2); Basophils % (auto) 0.1 % (0.0-2.0); Eosinophils # (auto) 0 10 ^3/uL (0-0.8); Lymphocytes # (auto) 1.9 10 ^3/uL (0.4-5.4); Monocytes # (auto) 1.1 10 ^3/uL (0-1.3); Neutrophils # (auto) 16.1 10 ^3/uL (1.6-8.6); White Blood Cell 19.2 10^3/uL (4.4-10.8)
[2024-01-06 12:46] LABS: Hematocrit 21.2 % (36.0-46.0); Lymphocytes % (auto) 9.9 % (10.0-50.0); Mean Corpuscular Hemoglobin 25.6 pg (28.0-32.0); Mean Corpuscular Hgb Conc. 31.8 g/dL (32.0-36.0); Mean Corpuscular Volume 80.5 fL (80.0-100.0); Monocytes % (auto) 5.8 % (0.0-12.0); Neutrophils % (auto) 84.2 % (37.0-80.0); Platelet Count (auto) 174 10^3/uL (140-450); Red Blood Cells 2.64 10^6/uL (4.0-5.20); Red Cell Distribution Width 16.5 % (11.8-14.3)
[2024-01-06 12:49] LABS: Hemoglobin 6.7 g/dL (12.2-16.2)
[2024-01-06] MEDS: PRENATAL VITAMIN TAB PO SCH (13:49)
[2024-01-06 15:00] VITALS: BP 120/79; PULSE 91; RESP 14; TEMP 99; O2SAT 97
[2024-01-06] MEDS ORDERED: TRANEXAMIC ACID 1,000 mg/10ml INJ VIAL IV ONE (18:37)
[2024-01-06 19:00] VITALS: BP 111/70; PULSE 86; RESP 16; TEMP 98.1; O2SAT 96
[2024-01-06] MEDS: DOCUSATE SOD 100 MG CAP PO SCH (22:28)
[2024-01-06 22:41] VITALS: BP 115/66; PULSE 100; RESP 18; TEMP 98.4; O2SAT 96
[2024-01-07] VITALS (17 sets, daily range): BP systolic 103–120; BP diastolic 57–69; PULSE 65–101; RESP 16–18; TEMP 97.9–98.8; O2SAT 96–99
--- NOTE | 2024-01-07 00:55 | DVHPN2 ---
Progress Note Date Seen: Jan 07, 2024 Subjective S: bleeding is less, eating food without issues, denies lightheaded/dizziness, pain well controlled with oral medications, no concerns with urinating, passing flatus, no BM yet, ambulating well, . Pt was offered blood transfusion on 01/06/24 for anemia, but pt declined. She wants to wait for the repeat CBC result in the morning and continue with IV iron for now. vital signs Vital Sign Date Time Temp Pulse Resp B/P (MAP) Pulse Ox O2 Delivery O2 Flow Rate FiO2 01/06/24 22:41 98.4 100 18 115/66 (82) 96 98.4 01/06/24 19:00 Room Air Total Intake and Output 01/06/24 01/06/24 01/07/24 15:00 23:00 07:00 Intake Total 1000 ml Output Total 800 ml Balance 200 ml medications Current Medications Medications Dose Ordered Sig/Natali Route Start Time Stop Time Status Last Admin Dose Admin Lactated Ringer's 1,000 ml @ 125 mls/hr Q8H IV 01/05/24 07:30 01/06/24 03:35 125 MLS/HR Witch Radha 1 pad PRN PRN TOP 01/05/24 07:30 01/05/24 08:57 1 PAD Sodium Lauryl Sulfate 240 ml PRN PRN TOP 01/05/24 07:30 01/05/24 08:57 240 ML Benzocaine 1 applic PRN PRN TOP 01/05/24 07:30 01/05/24 08:57 1 APPLIC Lidocaine HCl 20 ml ONCE PRN IJ 01/05/24 07:30 Cancel Terbutaline Sulfate 0.25 mg ONCE PRN SC 01/05/24 14:30 Cancel Ampicillin Sodium 2 gm/Sodium Chloride 100 ml @ 100 mls/hr Q6HR IV 01/06/24 06:00 01/20/24 05:59 01/06/24 23:57 100 MLS/HR Gentamicin Sulfate 0 ml @ 0 mls/hr PER PHARMACY IV 01/06/24 01:15 01/20/24 01:14 UNV Ibuprofen 600 mg Q6HP PRN PO 01/06/24 03:30 01/06/24 19:17 600 MG Acetaminophen 650 mg Q6HPRN PRN PO 01/06/24 03:30 Ondansetron HCl 4 mg Q4HP PRN IV 01/06/24 03:30 Docusate Sodium 200 mg HS PO 01/06/24 22:00 01/06/24 22:28 200 MG Prenat Multivit/ Single Fold Machine Operator/Iron/Folic Ac 1 DAILY PO 01/06/24 10:00 01/06/24 13:49 1 Iron Sucrose 110 ml @ 110 mls/hr DAILY IV 01/06/24 07:00 01/06/24 13:49 110 MLS/HR laboratory and microbiology Laboratory Tests 01/06/24 12:00 01/05/24 07:41 Test 01/05/24 07:41 Range/Units Serum Glucose 80 74-106 mg/dL Objective O: VSS Skin tone: pale compared to admission Chest: heart sounds normal and lung sounds clear bilaterally Abd: soft, non-tender, fundus at U/firm/midline, active bowel sounds, no rebound or guarding Perineum: 3+ edema, sutures intact, edges well approximated, no erythema noted Ext: Non-tender, 1+ edema, 2+ BLE DTRs Lochia: minimal See lab results Problems(with codes): (1) Acute blood loss anemia (ABLA) (2) (normal spontaneous vaginal delivery) (3) Second degree perineal laceration during delivery (4) Obstetric labial laceration, delivered, current hospitalization (5) Chorioamnionitis (6) Precipitous drop in hematocrit Assessment/Plan A: 28yo now PPD#1 s/p Acute blood loss anemia Chorioamnionitis PPH Rh+ Rubella Non-Immune Pain control with PO medications Bowel regimen P: Continue with IV antibiotics and IV iron Repeat CBC at 0700 MMR vaccine ordered Continue with routine PP care Plan discussed with: Patient, Spouse KERRI BARBER TOMAS Jan 07, 2024 00:55
[2024-01-07] MEDS ORDERED: MEASLES, MUMPS & RUBELLA VAC(MMRII) 0.5ML SC ONE (07:00)
[2024-01-07] MEDS: ACETAMINOPHEN 325 MG TAB PO PRN (07:08)
[2024-01-07 08:28] LABS: Basophils # (auto) 0 10 ^3/uL (0-0.2); Eosinophils # (auto) 0 10 ^3/uL (0-0.8); Lymphocytes # (auto) 1.5 10 ^3/uL (0.4-5.4); Monocytes # (auto) 0.7 10 ^3/uL (0-1.3); Red Cell Distribution Width 16.5 % (11.8-14.3)
[2024-01-07 08:31] LABS: Basophils % (auto) 0.4 % (0.0-2.0); Eosinophils % (auto) 0.1 % (0.0-7.0); Hematocrit 17.8 % (36.0-46.0); Lymphocytes % (auto) 11.6 % (10.0-50.0); Mean Corpuscular Hemoglobin 25.9 pg (28.0-32.0); Mean Corpuscular Hgb Conc. 32.2 g/dL (32.0-36.0); Mean Corpuscular Volume 80.5 fL (80.0-100.0); Monocytes % (auto) 4.9 % (0.0-12.0); Neutrophils # (auto) 11.1 10 ^3/uL (1.6-8.6); Platelet Count (auto) 143 10^3/uL (140-450); Red Blood Cells 2.22 10^6/uL (4.0-5.20); White Blood Cell 13.3 10^3/uL (4.4-10.8)
[2024-01-07 08:36] LABS: Hemoglobin 5.7 g/dL (12.2-16.2)
[2024-01-07 08:58] LABS: Anisocytosis Slight; Platelet Estimate Adequate
--- NOTE | 2024-01-07 09:40 | DVHPN2 ---
Chief Complaints Patient reports: No new complaints Nursing reports: No new complaints Objective Vitals Vital Signs Date Time Temp Pulse Resp B/P (MAP) Pulse Ox O2 Delivery O2 Flow Rate FiO2 01/07/24 03:03 98.2 100 16 120/58 (78) 96 98.2 01/06/24 19:00 Room Air Medications Current Medications Medications (Trade) Dose Ordered Sig/Natali Route PRN Reason Start Time Stop Time Status Last Admin Docusate Sodium (Colace Capsule) 200 mg HS PO 01/06/24 22:00 01/06/24 22:28 Prenat Multivit/ [place]/Iron/Folic Ac (Prenavite Tablet) 1 DAILY PO 01/06/24 10:00 01/06/24 13:49 Head/Eyes: Abnl conjuctiva/sclera Lungs: Normal Cardiovascular: Normal Abdominal: Soft Extremities: Normal Studies Laboratory Tests 01/07/24 08:09 01/05/24 07:41 Test 01/05/24 07:41 Range/Units Serum Glucose 80 74-106 mg/dL Ass/Plan Assessment S/P [facility]EMIA [facility] Jan 07, 2024 09:40
[2024-01-08 02:04] LABS: Basophils # (auto) 0 10 ^3/uL (0-0.2); Eosinophils # (auto) 0 10 ^3/uL (0-0.8); Monocytes # (auto) 1.1 10 ^3/uL (0-1.3)
[2024-01-08 02:06] LABS: Basophils % (auto) 0.3 % (0.0-2.0); Eosinophils % (auto) 0.3 % (0.0-7.0); Hematocrit 24.2 % (36.0-46.0); Lymphocytes # (auto) 2.6 10 ^3/uL (0.4-5.4); Lymphocytes % (auto) 20.6 % (10.0-50.0); Mean Corpuscular Hemoglobin 27.1 pg (28.0-32.0); Mean Corpuscular Hgb Conc. 33.2 g/dL (32.0-36.0); Mean Corpuscular Volume 81.6 fL (80.0-100.0); Monocytes % (auto) 8.8 % (0.0-12.0); Neutrophils # (auto) 8.9 10 ^3/uL (1.6-8.6); Nucleated Red Blood Cells % 0.1 %; Platelet Count (auto) 139 10^3/uL (140-450); Red Blood Cells 2.96 10^6/uL (4.0-5.20); Red Cell Distribution Width 16.2 % (11.8-14.3); White Blood Cell 12.7 10^3/uL (4.4-10.8)
[2024-01-08 03:10] VITALS: BP 113/72; PULSE 72; RESP 16; TEMP 97.7; O2SAT 96
[2024-01-08 06:48] VITALS: BP 108/73; PULSE 79; RESP 16; TEMP 97.8; O2SAT 97
[2024-01-08] MEDS ORDERED: FERR1TAB36 PO (07:22)
--- NOTE | 2024-01-08 07:25 | DVHPN2 ---
Chief Complaints Patient reports: No new complaints Nursing reports: No new complaints Objective Vitals Vital Signs Date Time Temp Pulse Resp B/P (MAP) Pulse Ox O2 Delivery O2 Flow Rate FiO2 01/08/24 06:48 97.8 79 16 108/73 (85) 97 97.8 01/07/24 19:00 Room Air Medications Current Medications Medications (Trade) Dose Ordered Sig/Natali Route PRN Reason Start Time Stop Time Status Last Admin Ferrous Sulfate 325 mg BIDWM PO 01/08/24 08:00 UNV General: Normal Head/Eyes: Abnl conjuctiva/sclera Lungs: Normal Cardiovascular: Normal Abdominal: Soft Extremities: Normal Studies Laboratory Tests 01/08/24 01:58 01/05/24 07:41 Test 01/05/24 07:41 Range/Units Serum Glucose 80 74-106 mg/dL Ass/Plan Assessment S/P ANEMIA Plan rec blood dc home,fu in 1w ALDA HOUGH DO Jan 08, 2024 07:25
--- NOTE | 2024-01-08 07:26 | DVHDS2 ---
Obstetrics Discharge Summary Obstetrics Discharge Summary Date of Admission: Jan 05, 2024 Date of Discharge: Jan 08, 2024 Reason For Admission: Induction of Labor Procedures: NST Intrapartum Procedures: Spontaneous vaginal deliv Procedures: Transfusion Operative Complicat: None Discharge Diagnosis: Term -Delivered Discharge Information: Activity (Other), Diet (Routine), Medications (Name:), Instructions (Routine), Discharge to (Home), Discarge date (01-07) ALDA HOUGH DO Jan 08, 2024 07:26
[2024-01-08] MEDS ORDERED: FERROUS SULFATE 325mg EC TAB PO SCH (08:00)
[2024-01-08 11:20] VITALS: BP 115/74; PULSE 77; RESP 18; TEMP 97.9; O2SAT 97
[2024-01-08] MEDS ORDERED: TRANEXAMIC ACID 1,000 mg/10ml INJ VIAL IV ONE (13:07)
== END 2024-01-08 12:51 | disposition still patient (30) | DRG 560 ==
LOC: LDRP 07:20
PROVIDERS: ADMIT Obstetrics & Gynecology; ATTEND Obstetrics & Gynecology
PROC: 0KQM0ZZ Repair Perineum Muscle, Open Approach (ICD-10-PCS; principal; 2024-01-06)
PROC: 10E0XZZ Delivery of Products of Conception, External Approach (ICD-10-PCS; 2024-01-06)
PROC: 3E0S3BZ Introduction of Anesthetic Agent into Epidural Space, Percutaneous Approach (ICD-10-PCS; 2024-01-06)
PROC: 00HU33Z Insertion of Infusion Device into Spinal Canal, Percutaneous Approach (ICD-10-PCS; 2024-01-06)
PROC: 3E0DXGC Introduction of Other Therapeutic Substance into Mouth and Pharynx, External Approach (ICD-10-PCS; 2024-01-06)
PROC: 0UQMXZZ Repair Vulva, External Approach (ICD-10-PCS; 2024-01-06)
PROC: 30233N1 Transfusion of Nonautologous Red Blood Cells into Peripheral Vein, Percutaneous Approach (ICD-10-PCS; 2024-01-07)
DX: O48.0 Post-term pregnancy (principal); Z37.0 Single live birth; O41.1230 Chorioamnionitis, third trimester, not applicable or unspecified; D62 Acute posthemorrhagic anemia; Z20.822 Contact with and (suspected) exposure to COVID-19; Z3A.40 40 weeks gestation of pregnancy; O70.1 Second degree perineal laceration during delivery; O90.81 Anemia of the puerperium
CPT/HCPCS: 36415; 36430; 59025; 59409; 62282; 80053; 80307; 81001; 81002; 85025; 85610; 85730; 86592; 86703; 86762; 86803; 86850; 86900; 86901; 86920; 87340; 87426; 94760; 94762; 96360; 96361; 96365; 96366; G0378; J1756; J2405; J2590; J3490; J7060

== ENCOUNTER → 2024-01-26 | Outpatient (CLI) | payer MEDICAID ==
[~2024-01-26] MED LIST changes: +FERR1TAB36 PO
[2024-01-26 14:23] LABS: Basophils # (auto) 0 10 ^3/uL (0-0.2); Basophils % (auto) 0.8 % (0.0-2.0); Eosinophils # (auto) 0.1 10 ^3/uL (0-0.8); Hematocrit 35.4 % (36.0-46.0); Hemoglobin 11.8 g/dL (12.2-16.2); Lymphocytes # (auto) 1.8 10 ^3/uL (0.4-5.4); Lymphocytes % (auto) 36.1 % (10.0-50.0); Mean Corpuscular Hemoglobin 27.7 pg (28.0-32.0); Mean Corpuscular Hgb Conc. 33.4 g/dL (32.0-36.0); Mean Corpuscular Volume 83.1 fL (80.0-100.0); Monocytes # (auto) 0.3 10 ^3/uL (0-1.3); Monocytes % (auto) 6.3 % (0.0-12.0); Neutrophils # (auto) 2.8 10 ^3/uL (1.6-8.6); Neutrophils % (auto) 55.8 % (37.0-80.0); Nucleated Red Blood Cells % 0.1 %; Platelet Count (auto) 317 10^3/uL (140-450); Red Blood Cells 4.26 10^6/uL (4.0-5.20); Red Cell Distribution Width 18.3 % (11.8-14.3); White Blood Cell 5.1 10^3/uL (4.4-10.8)
[2024-01-26 14:39] LABS: % Iron Saturation 10.4 % (15-50)
[2024-01-26 14:43] LABS: Ferritin 23.6 ng/mL (10-291); Folate (Folic Acid) 15.51 ng/mL (>5.38); T3 Total 1.36 ng/mL (0.60-1.81)
[2024-01-26 14:44] LABS: Free T4 (Free Thyroxine) 1.02 ng/dL (0.89-1.76)
[2024-01-27 08:06] LABS: T3 Uptake 22 % (24-39); Thyroid Peroxidase (TPO) Ab 10 IU/mL (0-34); Thyroxine (T4) 8.9 ug/dL (4.5-12.0)
[2024-01-27 10:07] LABS: Thyroglobulin Antibody <1.0 IU/mL (0.0-0.9)
== END | disposition home or self-care (01) ==
LOC: LAB 13:57
PROVIDERS: ATTEND Nurse Practitioner Women's Health
DX: Z01.419 Encounter for gynecological examination (general) (routine) without abnormal findings (principal); E28.2 Polycystic ovarian syndrome
CPT/HCPCS: 36415; 82306; 82607; 82728; 82746; 83540; 83550; 84436; 84439; 84443; 84479; 84480; 85025; 86376; 86800